=== PATIENT | female | born 1990 | race American Indian/Alaskan Native ===

== ENCOUNTER 2019-11-21 03:39 | Emergency (ER) | payer OTHER ==
[~2019-11-21] VITALS: Ht 162.6 cm; Wt 70.3 kg
[2019-11-21] MEDS ORDERED: INTESTINEX680 M1 PO (05:32)
[2019-11-21] MEDS ORDERED: CLINDAMYCIN HC300 MG PO (05:32)
== END 2019-11-21 05:42 | disposition home or self-care (01) ==
LOC: ER 03:39
DX: A54.1 Gonococcal infection of lower genitourinary tract with periurethral and accessory gland abscess (principal); B95.3 Streptococcus pneumoniae as the cause of diseases classified elsewhere; N76.0 Acute vaginitis

== ENCOUNTER 2021-03-12 08:03 | Inpatient (IN) | payer OTHER ==
[~2021-03-12] VITALS: Ht 165.1 cm; Wt 2.7 kg
[~2021-03-12 08:03] MED LIST: CLINDAMYCIN HC300 MG PO; INTESTINEX680 M1 PO
[2021-03-12] MEDS ORDERED: PRENATAL CAPLE1 EAC1 PO (10:24)
== END 2021-03-15 13:17 | disposition home or self-care (01) | DRG 788 ==
LOC: LDR 08:03 → SURG-SUITE 08:03 → OB/GYN 20:46 → SURG-SUITE 03-13 01:29
PROVIDERS: ADMIT Specialist; ATTEND Specialist
PROC: 3E0P7VZ Introduction of Hormone into Female Reproductive, Via Natural or Artificial Opening (ICD-10-PCS; 2021-03-12)
PROC: 10907ZC Drainage of Amniotic Fluid, Therapeutic from Products of Conception, Via Natural or Artificial Opening (ICD-10-PCS; 2021-03-12)
PROC: 4A1HXFZ Monitoring of Products of Conception, Cardiac Rhythm, External Approach (ICD-10-PCS; 2021-03-12)
PROC: 10D00Z1 Extraction of Products of Conception, Low, Open Approach (ICD-10-PCS; principal; 2021-03-12 18:00)
DX: O65.8 Obstructed labor due to other maternal pelvic abnormalities (principal); O64.8XX0 Obstructed labor due to other malposition and malpresentation, not applicable or unspecified; O62.1 Secondary uterine inertia; O24.420 Gestational diabetes mellitus in childbirth, diet controlled; Z3A.38 38 weeks gestation of pregnancy; Z37.0 Single live birth

== ENCOUNTER 2021-04-19 14:12 | Outpatient (CLI) | payer OTHER ==
[~2021-04-19 14:12] MED LIST changes: +PRENATAL CAPLE1 EAC1 PO
== END 2021-04-19 14:25 | disposition home or self-care (01) ==
LOC: SONOGRAMA 14:12 → MAMO-SONO 15:15
PROVIDERS: ATTEND Specialist
DX: K43.2 Incisional hernia without obstruction or gangrene (principal)

== ENCOUNTER 2021-09-25 08:41 | Outpatient (CLI) | payer OTHER | END 2021-09-25 09:06 | disposition home or self-care (01) | LOC: MRI 08:41 | PROVIDERS: ATTEND Specialist | DX: R10.9 Unspecified abdominal pain (principal) | CPT/HCPCS: 72196 ==

== ENCOUNTER 2023-02-09 20:32 | Emergency (ER) | payer OTHER ==
[~2023-02-09] VITALS: Ht 165.1 cm; Wt 72.6 kg
[2023-02-10] MEDS ORDERED: KETO10TA2 PO (02:28)
[2023-02-10] MEDS ORDERED: NORFLEX100MG PO (02:28)
== END 2023-02-10 02:40 ==
LOC: ER 20:32
DX: S00.93XA Contusion of unspecified part of head, initial encounter (principal); S30.0XXA Contusion of lower back and pelvis, initial encounter; W18.39XA Other fall on same level, initial encounter; Y93.89 Activity, other specified; Y92.018 Other place in single-family (private) house as the place of occurrence of the external cause; Y99.9 Unspecified external cause status

== ENCOUNTER 2023-04-13 12:53 | Emergency (ER) | payer OTHER ==
[~2023-04-13] VITALS: Ht 165.1 cm; Wt 72.6 kg
[~2023-04-13 12:53] MED LIST changes: +KETO10TA2 PO; +NORFLEX100MG PO
[2023-04-13] MEDS ORDERED: MUPIROCIN1 G1 TOP (18:04)
[2023-04-13] MEDS ORDERED: AMOX-CLAV 875-1 EAC1 PO (18:04)
== END 2023-04-13 18:48 | disposition home or self-care (01) ==
LOC: ER 12:53
DX: S91.119A Laceration without foreign body of unspecified toe without damage to nail, initial encounter (principal); X58.XXXA Exposure to other specified factors, initial encounter; Y93.89 Activity, other specified; Y92.59 Other trade areas as the place of occurrence of the external cause; Y99.8 Other external cause status

== ENCOUNTER → 2023-05-04 | Emergency (ER) | payer OTHER ==
[~2023-05-04] VITALS: Ht 165.1 cm; Wt 72.6 kg
[~2023-05-04] MED LIST changes: +AMOX-CLAV 875-1 EAC1 PO; +MUPIROCIN1 G1 TOP
== END | disposition home or self-care (01) ==
LOC: ER 14:26
DX: Z48.02 Encounter for removal of sutures (principal)

== ENCOUNTER 2024-06-11 08:28 | Outpatient (CLI) | payer OTHER | END 2024-06-11 08:29 | disposition home or self-care (01) | LOC: PRENATAL 08:28 | PROVIDERS: ATTEND Obstetrics & Gynecology Maternal & Fetal Medicine | DX: O36.80X0 Pregnancy with inconclusive fetal viability, not applicable or unspecified (principal); Z36.82 Encounter for antenatal screening for nuchal translucency; O34.219 Maternal care for unspecified type scar from previous cesarean delivery; Z14.8 Genetic carrier of other disease; O24.419 Gestational diabetes mellitus in pregnancy, unspecified control; Z3A.14 14 weeks gestation of pregnancy ==

== ENCOUNTER 2024-07-23 08:53 | Outpatient (CLI) | payer OTHER | END 2024-07-23 08:54 | disposition home or self-care (01) | LOC: PRENATAL 08:53 | PROVIDERS: ATTEND Obstetrics & Gynecology Maternal & Fetal Medicine | DX: O44.00 Complete placenta previa NOS or without hemorrhage, unspecified trimester (principal); O34.219 Maternal care for unspecified type scar from previous cesarean delivery; O24.419 Gestational diabetes mellitus in pregnancy, unspecified control; Z3A.20 20 weeks gestation of pregnancy ==

== ENCOUNTER → 2024-10-18 10:22 | Outpatient (CLI) | payer OTHER | END | disposition home or self-care (01) | LOC: PRENATAL 10:22 | PROVIDERS: ATTEND Obstetrics & Gynecology Maternal & Fetal Medicine | DX: O26.849 Uterine size-date discrepancy, unspecified trimester (principal); O36.8199 Decreased fetal movements, unspecified trimester, other fetus; O34.219 Maternal care for unspecified type scar from previous cesarean delivery; O24.419 Gestational diabetes mellitus in pregnancy, unspecified control; Z3A.34 34 weeks gestation of pregnancy ==

== ENCOUNTER 2024-11-26 15:00 | Inpatient (IN) | payer OTHER ==
[~2024-11-26] VITALS: Ht 165.1 cm; Wt 3.6 kg
[2024-11-26 16:42] LABS: BASO % 0.2 % (0.1-1.2); EOS # 0.03 (0.04-0.54); EOS % 0.3 % (0.7-7.0); HEMATOCRIT 34.9 % (34.1-44.9); HEMOGLOBIN 11.7 g/dL (11.2-15.7); LYMPH # 1.47 (1.18-3.74); LYMPH % 16.5 % (19.3-53.1); MEAN CORPUSCULAR HEMOGLOBIN 29.8 pg (25.6-32.2); MONO # 0.66 (0.24-0.82); MONO % 7.4 % (4.7-12.5); NEUT # 6.69 (1.56-6.13); NEUT % 75.2 % (34.0-71.1); PLATELET COUNT 173 K/uL (163-369); RED BLOOD COUNT 3.93 M/uL (3.93-5.22); RED CELL DISTRIBUTION WIDTH 13.8 % (11.6-14.4)
[2024-11-26 16:43] LABS: URINE APPEARANCE Clear; URINE BILIRRUBIN Negative (NEGATIVE); URINE BLOOD Negative; URINE COLOR Yellow; URINE GLUCOSE Negative (NEGATIVE); URINE KETONE Negative (NEGATIVE); URINE LEUKOCYTE Trace; URINE NITRATE Negative; URINE PROTEIN Negative (NEGATIVE); URINE UROBILINOGEN 0.2 E.U./dl
[2024-11-26 16:44] LABS: URINE BACTERIA 877.4 uL (0.0-1933); URINE EPITHELIAL CELLS 39.7 uL (0.0-38.8); URINE RBC 16.4 uL (0.0-20.8); URINE WBC 12.1 uL (0.0-23.2)
[2024-11-26 17:09] LABS: INR < 0.93; PARTIAL THROMBOPLASTIN TIME 22.5 SECONDS (22.0-34.0); PROTHROMBIN TIME 10.2 SECONDS (9.0-11.5)
[2024-11-26 17:22] LABS: ALBUMIN 2.8 gm/dL (3.4-5.0); BILIRUBIN TOTAL 0.23 mg/dL (0.3-1.2); CREATININE SERUM 0.58 mg/dL (0.55-1.02); GFR 118.3; GLOBULINA 3.9 G/DL (2.4-3.5); POTASSIUM 3.88 mEq/L (3.5-5.1); TOTAL PROTEIN 6.7 gm/dL (6.4-8.2)
[2024-12-08 08:42] VITALS: BP 128/81
[2024-12-08] MEDS ORDERED: OXYTOCIN 500 ML IV SCH (08:45)
[2024-12-08] MEDS ORDERED: PRENATABS RX T1 EACH PO (08:50)
[2024-12-08 11:10] VITALS: BP 116/70
[2024-12-08] MEDS ORDERED: ERYTHROMYCIN BASE OPHT 1GM EACH TUBE OP ONE ×2 (12:22→15:22)
[2024-12-08] MEDS ORDERED: CHLORHEXIDINE GLUCONATE 120 ML BOTTLE TOP ONE (12:23)
[2024-12-08] MEDS ORDERED: OXYTOCIN 20 UNITS/1000ML RL PIGGYBAG IV ONE (12:23)
[2024-12-08] MEDS ORDERED: LIDOCAINE HCL 1% 10ML VIAL ONE (12:23)
[2024-12-08 15:09] VITALS: BP 124/76
[2024-12-08] MEDS ORDERED: OXYTOCIN 10 UNITS/ML VIAL ONE ×2 (15:21→21:00)
[2024-12-08] MEDS ORDERED: CEFAZOLIN SODIUM 1,000 MG VIAL ONE (15:22)
[2024-12-08] MEDS ORDERED: THROMBIN,HU/FIBRINOGEN/CALCIUM 4 ML SYRINGE TOP ONE (15:38)
[2024-12-08] MEDS ORDERED: ONDANSETRON HCL 2 MG/ML VIAL IV PRN (17:45)
[2024-12-08] MEDS ORDERED: OXYTOCIN 1,000 ML IV SCH (17:45)
[2024-12-08] MEDS ORDERED: MORPHINE SULFATE 4 MG/ML CARTRIDGE IV PRN (17:45)
[2024-12-08] MEDS ORDERED: ACETAMINOPHEN 325 MG TABLET PO SCH (18:00)
[2024-12-08] MEDS ORDERED: KETOROLAC TROMETHAMINE 30 MG VIAL IV NR (18:10)
[2024-12-08] MEDS ORDERED: KETOROLAC TROMETHAMINE 30 MG VIAL ONE (19:48)
[2024-12-08] MEDS ORDERED: ACETAMINOPHEN 325 MG TABLET PO ONE (19:48)
[2024-12-08 21:35] VITALS: BP 114/69
[2024-12-09] VITALS: BP 96/59
[2024-12-09] MEDS ORDERED: KETOROLAC TROMETHAMINE 30 MG VIAL IV SCH
[2024-12-09 05:37] LABS: BASO % 0.2 % (0.1-1.2); EOS # 0.01 (0.04-0.54); EOS % 0.1 % (0.7-7.0); HEMATOCRIT 28.8 % (34.1-44.9); LYMPH # 1.26 (1.18-3.74); LYMPH % 11.8 % (19.3-53.1); MEAN CORPUSCULAR HEMOGLOBIN 29.9 pg (25.6-32.2); MONO # 0.67 (0.24-0.82); MONO % 6.3 % (4.7-12.5); NEUT # 8.66 (1.56-6.13); NEUT % 81.3 % (34.0-71.1); PLATELET COUNT 154 K/uL (163-369); RED BLOOD COUNT 3.24 M/uL (3.93-5.22); RED CELL DISTRIBUTION WIDTH 14.1 % (11.6-14.4)
[2024-12-09 05:44] LABS: HEMOGLOBIN 9.7 g/dL (11.2-15.7)
[2024-12-09] MEDS ORDERED: OxyCODONE HCL 5 MG TABLET (ROXICODONE) PO PRN (06:00)
[2024-12-09 08:00] VITALS: BP 102/70
[2024-12-09] MEDS ORDERED: PNV,CALCIUM 72/IRON/FOLIC ACID 1 TAB TABLET PO SCH (09:00)
[2024-12-09] MEDS ORDERED: SIMETHICONE 125 MG CAPSULE PO SCH (09:00)
[2024-12-09] MEDS ORDERED: IBUprofen 400 MG TABLET PO SCH (09:00)
[2024-12-09] MEDS ORDERED: IRON/V.C/V.B12/FOLIC A/VIT. E 1 CAPL CAPLET PO SCH (09:00)
[2024-12-09 16:16] VITALS: BP 113/71
[2024-12-10 00:57] VITALS: BP 98/65
[2024-12-10 08:00] VITALS: BP 110/72
[2024-12-10] MEDS ORDERED: BISACODYL 5 MG TABLET.EC PO NR (09:15)
[2024-12-10] MEDS ORDERED: MAGNESIUM HYDROXIDE 30 ML BLIST.PACK PO NR (14:45)
[2024-12-10 17:09] VITALS: BP 118/72
[2024-12-10] MEDS ORDERED: BISACODYL 10 MG/SUPP.RECT SUPP.RECT RECTAL NR (19:00)
[2024-12-11] VITALS: BP 112/71
[2024-12-11 08:50] VITALS: BP 109/72
== END 2024-12-11 15:49 | disposition home or self-care (01) | DRG 788 ==
LOC: LDR 15:00 → O/R 12-08 07:29 → OB/GYN 12-08 16:25 → LDR 12-09 15:00 → OB/GYN 12-11 15:49
PROVIDERS: ADMIT Obstetrics & Gynecology; ATTEND Obstetrics & Gynecology
PROC: 4A1HXCZ Monitoring of Products of Conception, Cardiac Rate, External Approach (ICD-10-PCS; 2024-12-08)
PROC: 10D00Z1 Extraction of Products of Conception, Low, Open Approach (ICD-10-PCS; principal; 2024-12-08 15:00)
DX: O34.211 Maternal care for low transverse scar from previous cesarean delivery (principal); Z3A.39 39 weeks gestation of pregnancy; Z37.0 Single live birth